=== PATIENT | female | born 1975 | race Caucasian/White ===

== ENCOUNTER → 2018-07-12 09:03 | Outpatient (REF) | payer BC, SELFPAY ==
--- NOTE | 2018-07-12 08:15 | PAPFT_PTH ---
PATIENT: Hilary Beaver LOC: [facility] U#:[id number] AGE/SX: 50/F ROOM: RE07/12/[address]: Veronica Lundy : 1975 BED: DIS: SPEC #: [id number] RECD: 07/12/18 13:05 STATUS: VERONICA REDella #: [id number] HUSSEIN: 07/12/18 08:[address]: Veronica Lundy DEPT: [facility] Cytology RECD BY: Susan Da Silva Tissues: 1 - CX/ENDOCX FOR PAP SMEARS Procedures: PAP THIN PREP/UVM Screening Comments: [id number] (UNSATISFACTORY FOR EVALUATION)
== END ==
LOC: NCHCN 09:03
PROVIDERS: PCP Family Medicine; Visit Provider Family Medicine
DX: Z00.00 Encounter for general adult medical examination without abnormal findings (principal); Z12.4 Encounter for screening for malignant neoplasm of cervix; Z11.51 Encounter for screening for human papillomavirus (HPV)
CPT/HCPCS: 88142; 87624

== ENCOUNTER 2018-11-07 17:23 | Outpatient (REF) | payer BC, SELFPAY ==
--- NOTE | 2018-11-07 15:00 | PAPFT_PTH ---
PAT[facility]: Hilary Beaver [id number] AGE/SX: 43/F ROOM: RE11/07/[address]: Veronica Lundy : 1975 BED: DIS: 11/07/2018 SPEC #: [id number] RECD: 11/08/18 13:10 STATUS: VERONICA REDella #: [id number] HUSSEIN: 11/07/18 15:[address]: Veronica Lundy DEPT: [facility] Cytology RECD BY: Susan Da Silva Tissues: 1 - CX/ENDOCX FOR PAP SMEARS Procedures: PAP THIN PREP/UVM Screening HPV DNA PROBE Comments: [id number]
== END 2018-11-07 17:43 ==
LOC: NCHCN 17:23
PROVIDERS: PCP Family Medicine; Visit Provider Family Medicine
DX: Z12.4 Encounter for screening for malignant neoplasm of cervix (principal); Z11.51 Encounter for screening for human papillomavirus (HPV); Z00.00 Encounter for general adult medical examination without abnormal findings
CPT/HCPCS: 88142; 87624

== ENCOUNTER 2019-02-13 23:38 | Outpatient (REF) | payer BC, SELFPAY ==
[2019-02-13 20:36] LABS: HCT 38.7 % (36.0-46.0); HGB 13.3 g/dL (12.0-15.5); Mean Corp. HGB Concentration 34.4 g/dL (32.0-36.0); Mean Corpuscular Hemoglobin 33.8 pg (27.0-33.0); Mean Corpuscular Volume 98.2 fL (80-95); Mean Platelet Volume 10.2 fL (8.0-11.0); Platelet Count 260 x1000/uL (130-400); RBC 3.94 m/cumm (4.00-5.20); RBC Distribution Width 11.4 % (11.7-14.6); White Blood Cell Count 7.87 k/cumm (4.4-10.8)
[2019-02-13 22:42] LABS: ALT 26 U/L (12-78); AST 18 U/L (15-37); Albumin 3.7 g/dL (3.4-5.0); Alkaline Phosphatase 71 U/L (46-116); Anion Gap 5.7 mmol/L (3-11); BUN 15 mg/dL (7-18); Bilirubin, Total 0.3 mg/dL (0.2-1.0); CO2 30.3 mmol/L (21.0-32.0); CREATININE 0.84 mg/dL (0.55-1.02); Calcium 9.2 mg/dL (8.5-10.1); Chloride 104 mmol/L (98-107); Cholesterol 163 mg/dL (50-200); Ferritin 119 ng/mL (8-388); Glucose 83 mg/dL (70-100); HDL Cholesterol 72 mg/dL (40-60); LDL CHOLESTEROL 78 mg/dL (<100); Potassium 4.1 mmol/L (3.5-5.1); Sodium 140 mmol/L (136-145); TSH (W/Ref FT4) 1.86 uIU/mL (0.358-3.74); Triglyceride 61 mg/dL (30-150)
== END 2019-02-13 23:58 ==
LOC: NCHCN 23:38
PROVIDERS: PCP Family Medicine; Visit Provider Family Medicine
DX: R00.2 Palpitations (principal); R53.83 Other fatigue; K59.00 Constipation, unspecified
CPT/HCPCS: 80053; 80061; 83721; 85027; 82728; 84443

== ENCOUNTER 2019-05-15 10:52 | Outpatient (REF) | payer BC, SELFPAY ==
[2019-05-16 09:01] LABS: IgA 160 mg/dL (85-499)
[2019-05-16 19:14] LABS: Tissue Transglutaminase Ab IgA <1.2 U/mL; Tissue Transglutaminase Ab IgG 2.7 U/mL
== END 2019-05-15 11:12 ==
LOC: NCHCN 10:52
PROVIDERS: PCP Family Medicine; Visit Provider Family Medicine
DX: R14.0 Abdominal distension (gaseous) (principal); K59.00 Constipation, unspecified
CPT/HCPCS: 82784; 83516

== ENCOUNTER 2019-05-20 01:01 | Outpatient (CLI) | payer BC, SELFPAY ==
--- NOTE | 2019-05-20 08:03 | DI.US_ITS ---
SYMPTOM/DIAGNOSIS: ABD BLOATING, R14.0, MILD RT PAIN ABDOMEN ULTRASOUND: The liver is normal in size and echogenicity. No biliary dilatation or focal liver lesions are seen. The gallbladder has a normal appearance, without evidence of stones or wall thickening. The kidneys, spleen, pancreas and aorta are unremarkable. There is no ascites. IMPRESSION: Negative abdomen ultrasound. PELVIC ULTRASOUND: Transabdominal and transvaginal exams were performed. The uterus is retroverted and measures 7.6 by 4.1 by 5.2 cm. No fibroids are seen. The endometrial stripe appears homogeneous and measures 4 mm. in thickness. The ovaries are normal in size and appearance. No ovarian cysts or masses are seen. There is no free fluid. IMPRESSION: Pelvic ultrasound is within normal limits.
== END 2019-05-20 01:21 ==
PROVIDERS: PCP Family Medicine; Visit Provider Family Medicine
DX: R14.0 Abdominal distension (gaseous) (principal); R10.31 Right lower quadrant pain; N85.4 Malposition of uterus
CPT/HCPCS: 76700; 76830; 76856

== ENCOUNTER 2019-07-15 09:23 | Outpatient (REF) | payer BC, SELFPAY ==
--- NOTE | 2019-07-15 08:30 | PAPFT_PTH ---
PATIENT: Hilary Beaver LOC: [facility]#:[id number] AGE/SX: 44/F ROOM: RE07/15/[address]: Veronica Lundy : 1975 BED: DIS: 07/15/2019 SPEC #: [id number] RECD: 07/15/19 13:01 STATUS: VERONICA STEWARD #: [id number] HUSSEIN: 07/15/19 08:[address]: Veronica Lundy [facility] Cytology RECD BY: Susan Da Silva Tissues: 1 - CX/ENDOCX FOR PAP SMEARS Procedures: PAP THIN PREP/UVM Screening HPV DNA PROBE Comments: [id number]
[2019-07-15 12:17] LABS: Bilirubin Negative (Negative); Blood Negative (Negative); Clarity Clear (Clear); Glucose Negative (Negative); Ketones Negative (Negative); Leukocyte Esterase Negative (Negative); Nitrite Negative (Negative); Specific Gravity 1.015 (1.005-1.025); Urobilinogen 0.2 EU/dL (Up TO 0.2)
== END 2019-07-15 09:43 ==
LOC: NCHCN 09:23
PROVIDERS: PCP Family Medicine; Visit Provider Family Medicine
DX: Z00.00 Encounter for general adult medical examination without abnormal findings (principal); Z12.4 Encounter for screening for malignant neoplasm of cervix; Z11.51 Encounter for screening for human papillomavirus (HPV); N39.0 Urinary tract infection, site not specified
CPT/HCPCS: 88142; 81003; 87624

== ENCOUNTER 2020-08-06 01:12 | Outpatient (CLI) | payer BC, SELFPAY ==
--- NOTE | 2020-08-06 13:04 | DI.MAMMO_ITS ---
EXAM: MAMMO SCREENING CLINICAL HISTORY: SCREENING,Z12.31 TECHNIQUE: Mammograms were interpreted according to the usual protocol including computer analysis w [facility] CAD system, tomosynthesis and C-view imaging. COMPARISON: FINDINGS: Breasts are heterogeneously dense. No dominant mass or clumped microcalcification is identified in e ither breast. The current examination is compared previous examinations including July 2017 and there has been no gross interval change in appearance comparison with previous studies. IMPRESSION: No specific evidence of malignancy at this time. Routine screening examinations are suggested at ye lloyd intervals in this age group according to the ACS ACR guidelines. BI-RADS Cat 1 - Negative Breast Density - Category C - Heterogeneously dense
== END 2020-08-06 01:32 ==
PROVIDERS: PCP Family Medicine; Visit Provider Family Medicine
DX: Z12.31 Encounter for screening mammogram for malignant neoplasm of breast (principal)
CPT/HCPCS: 77063; 77067

== ENCOUNTER → 2022-10-24 02:55 | Outpatient (CLI) | payer BC, SELFPAY ==
--- NOTE | 2022-10-24 | DI.MAMMO_ITS ---
Exam(s) MAMMO SCREENING EXAM: MAMMO SCREENING CLINICAL HISTORY: SCREENING, Z12.31 TECHNIQUE: Mammograms were interpreted according to the usual protocol including computer analysis w [employer] CAD system, tomosynthesis and C-view imaging. COMPARISON: 2013 through 2019 FINDINGS: The breasts are composed of heterogeneously dense fibroglandular densities, Breast Density category C . No suspicious masses or suspicious microcalcifications are seen. No skin thickening or abnormal axillary lymph nodes are seen. There has been no significant change from prior exams. IMPRESSION: BI-RADS Category 1, Negative mammogram. Yearly screening mammography is recommended. Breast Density Category C, heterogeneously Dense. The mammogram demonstrates the patient's breast tissue is dense. Dense breast tissue is very common a nd is not abnormal but dense breast tissue can make it harder to find cancer on a mammogram. Also, de nse breast tissue may increase breast cancer risk. This information about the result of the mammogram report was provided to the patient to raise their awareness. Use this report when you speak with the patient about their risks for breast cancer, which includes their family history. At that time, you may recommend additional screening tests (Ultrasound or MRI) as they might be useful based on their r isk. A negative radiographic report should not delay biopsy if a dominant or clinically suspicious mass is present. Up to ten percent of cancers are not identified on mammography. A negative report may reinforce clinical impression. Adenosis and dense breasts may obscure an underlying neoplasm. False positive reports average 6 to 10%.
== END ==
PROVIDERS: PCP Family Medicine; Visit Provider Family Medicine
DX: Z12.31 Encounter for screening mammogram for malignant neoplasm of breast (principal)
CPT/HCPCS: 77063; 77067

== ENCOUNTER 2023-11-27 17:37 | Outpatient (REF) | payer BC, SELFPAY ==
--- NOTE | 2023-11-27 09:30 | PAPFT_PTH ---
PATIENT: Hilary Beaver LOC: [facility]#:[id number] AGE/SX: 48/F ROOM: RE11/27/[address]: Veronica Lundy : 1975 BED: DIS: 11/27/2023 SPEC #: [id number] RECD: 11/27/23 17:55 STATUS: VERONICA STEWARD #: [id number] HUSSEIN: 11/27/23 09:[address]: Veronica Lundy DEPT: [facility] Cytology RECD BY: Susan Da Silva Tissues: 1 - CX/ENDOCX FOR PAP SMEARS Procedures: PAP THIN PREP/UVM Screening HPV DNA PROBE Comments: [id number]
== END 2023-11-27 17:38 | disposition home or self-care (01) ==
LOC: NCHCN 17:37
PROVIDERS: PCP Family Medicine; Visit Provider Family Medicine
DX: Z01.419 Encounter for gynecological examination (general) (routine) without abnormal findings (principal); Z12.4 Encounter for screening for malignant neoplasm of cervix
CPT/HCPCS: 88142; 87624